=== PATIENT | male | born 1970 | race Caucasian/White ===

== ENCOUNTER 2021-10-10 22:09 | Inpatient (IN) | payer MEDICARE, OTHER ==
[~2021-10-10] VITALS: Ht 172.7 cm; Wt 93.4 kg
[~2021-10-10 22:09] MED LIST: AMLODIPINE BES2.5 MG PO; CEFUROXIME500 MG PO; GABAPENTIN600 MG PO; IBU-200200 MG PO; IBUPROFEN800 MG PO; LEVOFLOXACIN500 MG PO; NEURONTIN 300300 MG PO; NORVASC2.5 MG PO; OMNICEF 300 MG300 MG PO; OXYCODONE HCL10 MG PO; PERCOCET 5-3251 EACH PO
[2021-10-10 23:20] LABS: HEMOGLOBIN 18.3 gm/dl (14.0-17.5); RED BLOOD COUNT 5.02 M/UL (4.20-5.50); WHITE BLOOD COUNT 21.4 K/UL (4.5-11.0)
[2021-10-11 01:33] LABS: BUN/CREATININE RATIO 24 (0-10)
[2021-10-11 10:25] LABS: HEMOGLOBIN 14.6 gm/dl (14.0-17.5); RED BLOOD COUNT 4.11 M/UL (4.20-5.50); WHITE BLOOD COUNT 13.2 K/UL (4.5-11.0)
[2021-10-11 10:33] LABS: BUN/CREATININE RATIO 13 (0-10)
[2021-10-11] MEDS ORDERED: ELIQUIS5 MG PO (11:15)
[2021-10-11] MEDS ORDERED: TOPROL XL 25 MG25 MG PO (11:59)
[2021-10-11] MEDS ORDERED: PROAIR HFA8.5 GM INH (12:05)
[2021-10-12 04:02] LABS: HEMOGLOBIN 14.4 gm/dl (14.0-17.5); RED BLOOD COUNT 4.08 M/UL (4.20-5.50); WHITE BLOOD COUNT 10.3 K/UL (4.5-11.0)
[2021-10-12 04:23] LABS: BUN/CREATININE RATIO 18 (0-10)
--- NOTE | 2021-10-12 15:25 | NUR ---
LEFT GROIN PACKING CHANGED PT TOLERATED WELL.
[2021-10-13 06:51] LABS: HEMOGLOBIN 15.5 gm/dl (14.0-17.5); RED BLOOD COUNT 4.52 M/UL (4.20-5.50); WHITE BLOOD COUNT 14.3 K/UL (4.5-11.0)
[2021-10-13 07:09] LABS: BUN/CREATININE RATIO 22 (0-10)
[2021-10-13] MEDS ORDERED: CEFTRIAXON1 GM/50 ML IV (12:10)
[2021-10-13] MEDS ORDERED: AUGMENTIN 875-1 EACH PO (12:10)
[2021-10-13] MEDS ORDERED: PERCOCET 5/325 T1 EA PO (12:10)
[2021-10-13] MEDS ORDERED: LEVOFLOXACIN750 MG PO (12:40)
[2021-10-13] MEDS ORDERED: KEFLEX CAP 250250 MG PO (12:45)
== END 2021-10-13 15:23 | disposition home health service (06) | DRG 698 ==
LOC: ER1 22:09 → PROG CARE 10-11 04:09 → CDU 10-11 04:09 → MED SURG 4 10-11 04:09 → PROG CARE 10-11 08:28 → MED SURG 4 10-11 18:18
PROVIDERS: Family Medicine; Internal Medicine; ADMIT Internal Medicine
PROC: 0J9C0ZZ Drainage of Pelvic Region Subcutaneous Tissue and Fascia, Open Approach (ICD-10-PCS; principal; 2021-10-11)
DX: T83.518A Infection and inflammatory reaction due to other urinary catheter, initial encounter (principal); A41.81 Sepsis due to Enterococcus; A41.89 Other specified sepsis; G82.20 Paraplegia, unspecified; E87.1 Hypo-osmolality and hyponatremia; L02.214 Cutaneous abscess of groin; E87.2 Acidosis; N30.00 Acute cystitis without hematuria; J98.11 Atelectasis; Z20.822 Contact with and (suspected) exposure to COVID-19; I10 Essential (primary) hypertension; E86.0 Dehydration; J44.9 Chronic obstructive pulmonary disease, unspecified; B96.4 Proteus (mirabilis) (morganii) as the cause of diseases classified elsewhere; M54.50 Low back pain, unspecified; E87.6 Hypokalemia; E83.42 Hypomagnesemia; F17.210 Nicotine dependence, cigarettes, uncomplicated; L89.610 Pressure ulcer of right heel, unstageable; G89.29 Other chronic pain; Z86.718 Personal history of other venous thrombosis and embolism; Z79.01 Long term (current) use of anticoagulants; Z89.432 Acquired absence of left foot; Z88.2 Allergy status to sulfonamides; Z79.899 Other long term (current) drug therapy
CPT/HCPCS: 36415; 71045; 73552; 80048; 80053; 80202; 81001; 82550; 82553; 83605; 83735; 83880; 84100; 84132; 85025; 85027; 86140; 87040; 87070; 87077; 87086; 87186; 87205; 93005; 94760; 96374; 99285; A6212; J0692; J0696; J3370; J7030; J7070; Q9967; U0002